=== PATIENT | female | born 2000 | race Caucasian/White ===

== ENCOUNTER 2019-08-20 22:52 | Inpatient (IN) | payer SELFPAY ==
[2019-08-20] MEDS ORDERED: fentaNYL 100 MCG/2 ML INJ IV PRN (22:57)
[2019-08-20] MEDS ORDERED: ePHEDrine SULFATE 50 MG/1 ML INJ IV PRN (22:57)
[2019-08-20] MEDS ORDERED: AMPICILLIN/NS 2 GM/100 ML 2 GM/100 ML BAG IV ONE (22:57)
[2019-08-20] MEDS ORDERED: LIDOCAINE (2%) 20 MG/1 ML VIAL 20 ML MDV INFILTRATI ONE (22:57)
[2019-08-20] MEDS ORDERED: TERBUTALINE 1 MG/1 ML INJ SUB-Q PRN (22:57)
[2019-08-20] MEDS ORDERED: LACTATED RINGERS 1,000 ML IV SCH (23:00)
[2019-08-20] MEDS ORDERED: OXYTOCIN 20 UNIT/1000ML DRIP 20 UNITS/1,000 ML BAG IV SCH (23:00)
--- NOTE | 2019-08-20 23:05 | History and Physical Report ---
History of Present Illness Date of examination: 08/20/19 Date of admission: 08/20/19 22:52 Chief complaint: Contractions History of present illness: 19 year old presents in active labor. Patient denies LOF or VB. Patient received care at [facility] and records are available. LMP 11/29/2018. EDC 09/05/2019. without complication. labs are as follows: O+, antibody screen negative, rubella immune, hepatitis B surface antigen negative, HIV negative, RPR negative, gonorrhea negative, chlamydia negative, GBS unknown, diabetes screen 100, HSV 2 negative, quad screen negative. 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 denies: smoking, alcohol abuse, prescription drug abuse, IV drug use - Obstetrical History Expected Date of Delivery: 09/05/19 Actual Gestation: 37 Week(s) 5 Day(s) : 3 Para: 1 Hx # Term Pregnancies: 1 Number of Pregnancies: 0 Spontaneous Abortions: 1 Induced : 0 Number of Living Children: 1 Medications and Allergies Active Meds: Active Medications Ephedrine Sulfate (Ephedrine Sulfate) 10 mg IV Q2M PRN PRN Reason: Hypotension Fentanyl (Sublimaze) 100 mcg IV Q2H PRN PRN Reason: Pain,Severe (7-10) LABOR PAIN Oxytocin/Sodium Chloride (Pitocin/Ns 20 Unit/1000ml Drip) 20 units in 1,000 mls @ 125 mls/hr IV DIRECT PIOTR Lactated Ringer's (Lactated Ringers) 1,000 mls @ 125 mls/hr IV DIRECT PIOTR Ampicillin Sodium (Ampicillin/Ns 2 Gm/100 Ml) 2 gm in 100 mls @ 100 mls/hr IV ONCE ONE; Protocol Stop: 08/20/19 23:56 Ampicillin Sodium (Ampicillin/Ns 1 Gm/50 Ml) 1 gm in 50 mls @ 100 mls/hr IV Q4HR PIOTR; Protocol Lidocaine (Xylocaine 2%) 20 ml INFILTRATI ONCE ONE Stop: 08/20/19 22:58 Terbutaline Sulfate (Brethine) 0.25 mg SUB-Q ONCE PRN PRN Reason: Hyperstimulation/Hypertonicity Review of Systems All systems: negative (contractions) - Physical Exam Abdomen: Positive: normal appearance, soft. Negative: distention, tenderness, guarding, rigidity Genitourinary (Female): Positive: normal external genitalia, normal perenium. Negative: perineal/vulvar lesions (no lesions noted on careful exam with bright light) Vagina: Positive: normal moisture Uterus: Positive: normal size, enlarged. Negative: tender Anus/Rectum: Positive: normal perianal skin Extremities: Positive: normal. Negative: tenderness, edema - Obstetrical FHR: category 2 Uterine Contraction Monitor Mode: External Cervical Dilatation: 6 Cervical Effacement Percentage: 95 station: -1 Uterine Contraction Pattern: Regular Uterine Contraction Intensity: Moderate Results All other labs normal. Assessment and Plan A: at 37 weeks, 5 days gestation. Active labor. GBS unknown. P: Admit. EFM. GBS prophylaxis. Anticipate vaginal .
[2019-08-20 23:51] LABS: Hematocrit 38.2 % (30.3-42.9); Hemoglobin 12.9 gm/dl (10.1-14.3); Mean Corpuscular HGB Conc 34 % (30-34); Mean Corpuscular Volume 95 fl (79-97); Platelet Count 278 K/mm3 (140-440); Red Blood Count 4.03 M/mm3 (3.65-5.03); Red Cell Distribution Width 12.8 % (13.2-15.2)
[2019-08-21] MEDS ORDERED: HYDROcodone/ACETAMINOPHEN 5-325 MG TAB PO PRN (00:23)
[2019-08-21] MEDS ORDERED: BENZOCAINE/MENTHOL 20/0.5% TOP SPRAY 56 GM TP PRN (00:23)
[2019-08-21] MEDS ORDERED: LANOLIN/ZINC/DIMETHICONE (LANSINOH) 7 GM TP PRN (00:23)
[2019-08-21] MEDS ORDERED: MAGNESIUM HYDROXIDE (MOM) ORAL LIQD UDC PO PRN (00:23)
[2019-08-21] MEDS ORDERED: WITCH HAZEL/ GLYCERIN PAD TP PRN (00:23)
--- NOTE | 2019-08-21 00:40 | Procedure Note ---
OB Delivery Note - Delivery Date of Delivery: 08/20/19 Surgeon: RADU HERNANDEZ Estimated blood loss: 200cc - Vaginal Delivery presentation: vertex Delivery position: OA Delivery induction: none Delivery augmentation: rupture of membranes Delivery monitor: external FHT, external uterine Route of delivery: Delivery placenta: spontaneous Delivery cord: 3 umbilical vessels Episiotomy: none Delivery laceration: 2nd degree Delivery repair: vicryl Anesthesia: local Delivery comments: Spontaneous vaginal delivery at 23:54 of liveborn female inanf weighing 7 lb. 4 oz. over 2nd degree laceration with apgars of 8/9. Baby delivered gently and easily. Spontaneous cry and respirations. 3 vessel cord double clamped and cut. Cord blood obtained. Spontaneous delivery of intact placenta and membranes by narayanan mechanism. EBL 200 cc. Pitocin to IV fluis after delivery of placenta. Fundus firm and midline. 2nd degree perineal laceration reparied with 2-0 vicryl. Vaginal sweep negative. Sponge count correct. Mother and baby stable.
[2019-08-21] MEDS ORDERED: AMPICILLIN/NS 1 GM/50 ML 1 GM/50 ML BAG IV SCH (03:00)
[2019-08-21] MEDS: IBUPROFEN 600 MG TAB PO SCH ×3 (04:49→23:26)
--- NOTE | 2019-08-21 12:33 | Progress Note ---
Assessment and Plan A: day 1 S/P . P: Continue current management. Anticipate discharge home tomorrow. Subjective - Subjective Date of service: 08/21/19 Principal diagnosis: day 1 S/P Interval history: day 1 S/P . Doing well. Patient reports: appetite normal, voiding normally, pain well controlled, flatus, ambulating normally, no dizzy ambulation, no nauseated [place]: doing well Objective - Vital Signs Latest vital signs: Vital Signs Temp Pulse Resp BP BP Pulse Ox 08/21/19 12:26 97.9 F 84 18 105/59 98 08/21/19 08:25 97.7 F 85 18 110/56 100 08/21/19 02:00 98.5 F 95 H 20 114/70 97 08/21/19 01:33 19 08/21/19 00:11 108 H 117/58 08/21/19 00:09 99.4 F 20 117/58 08/20/19 23:11 106 H 96 08/20/19 23:06 118 H 98 Intake and Output 08/20/19 08/21/19 08/21/19 23:59 07:59 15:59 Intake Total 200 480 Output Total 200 Balance 0 480 Intake: Oral 200 480 Output: Urine 200 Void 200 Other: Total, Intake Amount 200 240 Total, Output Amount 200 Weight 75.296 kg Estimated Blood Loss 200 - Exam Cardiovascular: Present: Regular rate, Normal S1, Normal S2, No murmurs Lungs: Present: Clear to auscultation Abdomen: Present: normal appearance, soft. Absent: distention, tenderness, guarding, rigidity Uterus: Present: normal, firm, fundal height below umbilicus. Absent: bogginess, tenderness - Labs Labs: Abnormal lab results 08/20/19 Range/Units 23:14 RDW 12.8 L (13.2-15.2) %
[2019-08-21 14:46] LABS: Hemoglobin 11.1 gm/dl (10.1-14.3)
[2019-08-22] MEDS: IBUPROFEN 600 MG TAB PO SCH ×3 (06:10→18:11)
--- NOTE | 2019-08-22 13:46 | Progress Note ---
Assessment and Plan A: day 2 S/P . Anemia. P: Discharge patient home today. Discussed with patient discharge instructions and warning signs. Advised patient to avoid intercourse, lifting, housework. Advised patient to continue taking her vitamins and iron supplements. Advised patient to follow up in OB clinic in 4-6 weeks for exam. Patient voiced understanding of all instructions. Subjective - Subjective Date of service: 08/22/19 Principal diagnosis: day 2 S/P Interval history: day 2 S/P . Doing well. Desires discharge today. Patient reports: appetite normal, voiding normally, pain well controlled, flatus, ambulating normally, no dizzy ambulation, no nauseated [place]: doing well Objective - Vital Signs Latest vital signs: Vital Signs Temp Pulse Resp BP BP Pulse Ox 08/22/19 08:35 97.7 F 79 18 109/71 99 08/22/19 00:53 98.5 F 80 20 105/69 96 08/21/19 16:35 97.9 F 75 18 103/55 98 Intake and Output 08/21/19 08/22/19 08/22/19 23:59 07:59 15:59 Intake Total 480 120 240 Balance 480 120 240 Intake: Oral 480 120 240 Other: Total, Intake Amount 240 120 240 # Voids Void 1 1 - Exam Cardiovascular: Present: Regular rate, Normal S1, Normal S2, No murmurs Lungs: Present: Clear to auscultation Abdomen: Present: normal appearance, soft. Absent: distention, tenderness, guarding, rigidity Uterus: Present: normal, firm, fundal height below umbilicus. Absent: bogginess, tenderness Extremities: Present: normal. Absent: tenderness, edema
--- NOTE | 2019-08-22 13:49 | Discharge Summary ---
Providers - Providers Date of Admission: 08/20/19 22:52 Date of discharge: 08/22/19 Attending physician: CARLITA REID MD Primary care physician: CARLITA REID MD Hospitalization Reason for admission: active labor Delivery: Episiotomy: none Laceration: 2nd degree Other procedures: none complications: none Discharge diagnosis: IUP at term delivered [place] baby: female Pertinent studies: Labs Hospital course: Normal hospital course. Condition at discharge: Good Disposition: DC-01 TO HOME OR SELFCARE - Discharge Diagnoses (1) Term delivered Status: Acute Plan - Provider Discharge Summary Activity: routine, no sex for 6 weeks, no heavy lifting 4 weeks, no strenuous exercise Diet: routine Instructions: routine Additional instructions: Continue taking your vitamins at home. Call your doctor immediately for: * Fever > 100.5 * Heavy vaginal bleeding ( >1 pad per hour) * Severe persistent headache * Shortness of breath * Reddened, hot, painful area to leg or breast - Follow up plan Follow up: CARLITA REID MD [Primary Care Provider] - 6 Weeks
[2019-08-22 21:51] VITALS: BP 100/61
== END 2019-08-22 22:35 | disposition home or self-care (01) | DRG 807 ==
LOC: LD 22:52 → OB 08-21 02:16
PROVIDERS: ADMIT Obstetrics & Gynecology; ATTEND Obstetrics & Gynecology
PROC: 10E0XZZ Delivery of Products of Conception, External Approach (ICD-10-PCS; principal; 2019-08-20)
PROC: 0KQM0ZZ Repair Perineum Muscle, Open Approach (ICD-10-PCS; 2019-08-20)
DX: O70.1 Second degree perineal laceration during delivery (principal); Z37.0 Single live birth; Z3A.37 37 weeks gestation of pregnancy; O90.81 Anemia of the puerperium; D64.9 Anemia, unspecified
CPT/HCPCS: 36415; 85014; 85018; 85027; 86592; 86850; 86900; 86901; G0378; J0290; J2590; J3010; J7120